=== PATIENT | female | born 1955 | race Caucasian/White ===

== ENCOUNTER → 2022-05-14 | Day surgery (SDC) | payer OTHER ==
[~2022-05-14] VITALS: Ht 162.6 cm; Wt 77.4 kg
[~2022-05-14] MED LIST: AUGMENTIN 875-1 EACH PO; BACLOFEN 10MG T10 MG PO; BUSPIRONE HCL7.5 MG PO; LIPITOR20 MG PO; LIPITOR40 MG PO; MOBIC7.5 MG PO; PROTONIX 40MG T40 MG PO; TEMAZEPAM 15MG15 MG PO; ZANTAC150 MG PO; ZOFRAN4 MG PO
[2022-05-14 09:04] LABS: HGB 14.8 g/dl (12.5-16.0); MCH 30.4 pg (25.0-31.0); MCHC 33.6 g/dL (32.0-36.0); MCV 90.3 fL (78.0-100.0); MPV 12.1 fL (6.0-9.5); RBC 4.87 M/uL (4.20-5.40); RDW 13.2 % (11.5-14.0); WBC 4.2 K/uL (4.0-10.5)
[2022-05-14 09:22] LABS: BILIRUBIN - TOTAL 0.5 mg/dL (0.2-1.0); BUN/CREAT RATIO (CALC) 19.1 RATIO; CREATININE 0.89 mg/dL (0.51-0.95); GLOBULIN (CALCULATION) 3.5 g/dL; POTASSIUM 4.1 mmol/L (3.5-5.1); TOTAL PROTEIN 7.5 g/dL (6.4-8.2)
== END | disposition home or self-care (01) ==
LOC: FAS 08:24
PROVIDERS: Surgery
DX: Z12.11 Encounter for screening for malignant neoplasm of colon (principal); K21.00 Gastro-esophageal reflux disease with esophagitis, without bleeding; K29.60 Other gastritis without bleeding; Z86.010 Personal history of colon polyps; Z90.49 Acquired absence of other specified parts of digestive tract; Z87.891 Personal history of nicotine dependence
CPT/HCPCS: 43239; G0105; 36415; 80053; J2250; J2704; J7120